=== PATIENT | female | born 1960 | race Caucasian/White ===

== ENCOUNTER 2017-09-12 12:57 | Emergency (ER) | payer OTHER ==
[~2017-09-12] VITALS: Ht 170.2 cm; Wt 72.0 kg
[2017-09-12] MEDS ORDERED: LORAZEPAM 1MG TABLET PO ONE (13:30)
[2017-09-12 14:59] VITALS: BP 128/78
== END 2017-09-12 15:00 | disposition home or self-care (01) ==
LOC: ER 13:34
DX: F41.9 Anxiety disorder, unspecified (principal); F32.9 Major depressive disorder, single episode, unspecified; Z96.659 Presence of unspecified artificial knee joint
CPT/HCPCS: 93005; 99284